=== PATIENT | male | born 1985 | race Caucasian/White ===

== ENCOUNTER 2022-02-04 15:59 | Emergency (ER) | payer OTHER ==
[2022-02-04] MEDS ORDERED: LIDOCAINE 2% 10 ML MDV SUBQ ONE (16:26)
[2022-02-04] MEDS ORDERED: lidocaine 1% 20 ML MDV ONE (16:44)
[2022-02-04] MEDS ORDERED: TETANUS/DIPHTHERIA/PERTUSSIS 0.5 ML SYRINGE IM ONE (16:53)
[2022-02-04] MEDS ORDERED: cephALEXin 250 MG CAPSULE PO STA (16:53)
--- NOTE | 2022-02-04 16:56 | ED Physician Documentation ---
PD HPI UPPER EXT INJURY - Stated complaint Stated Complaint: THUMB INJ - Chief complaint Chief Complaint: Laceration - History obtained from History obtained from: Patient - History of Present Illness Location: Left, Finger (thumb) Where injury occurred: Home Timing - onset: How many hours ago (1) Timing - duration: Hours (1) Timing - details: Abrupt onset Pain level max: 3 Pain level now: 2 Improved by: Rest Worsened by: Moving Contributing factors: No: Anticoagulated - Additonal information Additional information: Patient is a 36-year-old male with a left thumb laceration from a hand saw. Worse with movement, better with rest. Patient is right-handed. Not anticoagulated. Unknown last tetanus. No numbness or tingling. Review of Systems Constitutional: denies: Fever GI: denies: Vomiting PD PAST MEDICAL HISTORY - Past Medical History Past Medical History: Yes GI: GERD Psych: ADD/ADHD - Past Surgical History Past Surgical History: Yes Ortho: Arthroscopic surgery (b/l knee) - Present Medications Home Medications: Ambulatory Orders Medication Instructions Recorded Confirmed Dextroamphetamine/Amphetamine 20 mg PO DAILY 02/06/13 02/06/13 [Adderall 20 mg Tablet] Esomeprazole Magnesium [Nexium] 20 mg PO DAILY 02/06/13 02/06/13 cephALEXin [Keflex] 500 mg PO Q6H #28 cap 02/04/22 - Allergies Allergies/Adverse Reactions: Allergies Allergy/AdvReac Type Severity Reaction Status Date / Time No Known Drug Allergies Allergy Verified 02/04/22 16:20 - Social History Does the pt smoke?: No Smoking Status: Never smoker Does the pt drink ETOH?: No Does the pt have substance abuse?: No - Immunizations Immunizations are current?: No Immunizations: TDAP >10years/unknown - POLST Patient has POLST: No PD ED PE NORMAL - Vitals Vital signs reviewed: Yes - General General: Alert and oriented X 3, No acute distress - HEENT HEENT: Moist mucous membranes - Derm Derm: Warm and dry - Neuro Neuro: Alert and oriented X 3 - Psych Psych: Normal mood, Normal affect PD ED PE EXPANDED - Extremities JEREMY UE/Hands Visual: 1 - laceration (2cm, Linear, subcutaneous, neurovascular intact. Tendon intact. Test against resistance.) Results - Vitals Vitals: Vital Signs - 24 hr 02/04/22 02/04/22 16:20 17:07 Temperature 36.5 C 36.5 C Heart Rate 72 70 Respiratory 18 16 Rate Blood Pressure 127/82 H 120/80 O2 Saturation 99 100 Oxygen O2 Source Room air Procedures - Laceration (location) L thumb Length in cm: 2 Wound type: Linear, Into subcut fat, Clean Neurovascular status: Sensory intact, Motor intact, Vascular intact Tendon involvement: Tendon intact Anesthesia: Lidocaine 1% Wound preparation: Irrigated copiously NS Skin layer closure: Nylon, Interrupted, Size #-0 - enter number (4) Other: Patient tolerated well, No complications, Neurovascular intact, Dressing applied, Tetanus booster given PD MEDICAL DECISION MAKING - ED course Complexity details: considered differential, d/w patient ED course: Laceration repaired. Tolerated well. No indication of bony injury. As it was a dirty saw, will place on antibiotics. No evidence of tendon laceration. Warnings of infection and instructions on wound care given at bedside. Patient counseled regarding signs and symptoms for which I believe and urgent re- evaluation would be necessary. Patient with good understanding of and agreement to plan and is comfortable going home at this time This document was made in part using voice recognition software. While efforts are made to proofread this document, sound alike and grammatical errors may occur. Departure - Departure Disposition: 01 Home, Self Care Clinical Impression: Laceration of thumb Qualifiers: Encounter type: initial encounter Damage to nail status: without damage Foreign body presence: without foreign body Laterality: left Qualified Code(s): S61.012A - Laceration without foreign body of left thumb without damage to nail, initial encounter Condition: Good Instructions: ED Laceration Hand Follow-Up: SONIDO FAUSTIN MD [Primary Care Provider] - Prescriptions: cephALEXin [Keflex] 500 mg PO Q6H #28 cap Comments: [place] 10 to 14 days. You can use the splint to help immobilize the area while you are working. Take all antibiotics until gone. They were sent to the [facility] for you. Your tetanus was updated today as well. Return if you notice redness, swelling or drainage from the wound. Discharge Date/Time: 02/04/22 17:07
[2022-02-04 17:08] VITALS: BP 120/80
== END 2022-02-04 17:07 | disposition home or self-care (01) ==
LOC: ED 15:59
DX: S61.012A Laceration without foreign body of left thumb without damage to nail, initial encounter (principal); W27.0XXA Contact with workbench tool, initial encounter; Z23 Encounter for immunization; Z71.85 Encounter for immunization safety counseling
CPT/HCPCS: 12001; 90471; 90715; 99283; A9270